=== PATIENT | female | born 1980 | race Caucasian/White ===

== ENCOUNTER 2017-02-05 11:51 | Emergency (ER) | payer OTHER ==
[~2017-02-05] VITALS: Ht 167.6 cm; Wt 132.9 kg
[2017-02-05 14:42] VITALS: BP 108/75
== END 2017-02-05 14:48 | disposition home or self-care (01) ==
LOC: EME 11:51 → RME 11:51
PROC: 0HQGXZZ Repair Left Hand Skin, External Approach (ICD-10-PCS; principal; 2017-02-05)
DX: S61.012A Laceration without foreign body of left thumb without damage to nail, initial encounter (principal); W26.0XXA Contact with knife, initial encounter; Y93.G3 Activity, cooking and baking
CPT/HCPCS: 99281; 99284; S0020

== ENCOUNTER 2017-07-21 20:12 | Emergency (ER) | payer OTHER ==
[~2017-07-21] VITALS: Ht 167.6 cm; Wt 132.2 kg
[2017-07-21 21:06] LABS: BASOPHIL (%) 0.6 % (0-1); BASOPHIL COUNT 0.1 K/uL (0-0.1); EOSINOPHIL (%) 1.1 % (0-5); EOSINOPHIL COUNT 0.1 K/uL (0-0.3); HEMATOCRIT 35.5 % (36.0-46.0); HEMOGLOBIN 11.9 G/DL (11.9-15.5); IMMATURE GRANULOCYTE (%) 0.2 % (0.0-0.7); LYMPHOCYTE (%) 35.1 % (15-42); MCH 25.1 PG (29.0-34.0); MCHC 33.5 G/DL (30.0-36.0); MCV 74.9 FL (83-99); MONOCYTE (%) 6.1 % (3-12); MONOCYTE COUNT 0.5 K/uL (0-0.8); NEUTROPHIL (%) 56.9 % (45-76); NEUTROPHIL COUNT 4.9 K/uL (1.8-6.4); PLATELET COUNT 338 K/uL (156-360); RBC DIS.WIDTH-CV 14.5 % (11.8-14.6); RED BLOOD COUNT 4.74 M/uL (3.80-5.20); WHITE BLOOD COUNT 8.6 K/uL (4.1-10.2)
[2017-07-21 21:12] LABS: CHLORIDE 105 mEq/L (99-109); SODIUM 139 mEq/L (136-147)
[2017-07-21 21:17] LABS: GLUCOSE 176 mg/dL (70-99)
[2017-07-21 21:21] LABS: CREATININE 1.1 mg/dL (0.6-1.3); GFR ESTIMATE (CALCULATED) > 59 mL/min/
[2017-07-21 21:22] LABS: UREA NITROGEN (BUN) 12 mg/dL (9-23)
[2017-07-21 21:24] LABS: CREATINE KINASE 93 IU/L (1-294)
[2017-07-22] MEDS ORDERED: INDOCIN50 MG PO (00:36)
[2017-07-22] MEDS ORDERED: ULTRACET1 TABLET PO (00:37)
[2017-07-22 00:53] VITALS: BP 118/85
== END 2017-07-22 00:53 | disposition home or self-care (01) ==
LOC: EME 20:12
PROVIDERS: Physician Assistant
DX: M79.651 Pain in right thigh (principal); G89.29 Other chronic pain; R79.1 Abnormal coagulation profile; M54.16 Radiculopathy, lumbar region; E11.65 Type 2 diabetes mellitus with hyperglycemia; F17.200 Nicotine dependence, unspecified, uncomplicated; Z88.0 Allergy status to penicillin
CPT/HCPCS: 73552; 80048; 82550; 85025; 85379; 93971; 99281; 99283